=== PATIENT | female | born 1975 | race Caucasian/White ===

== ENCOUNTER 2019-04-14 00:34 | Day surgery (SDC) | payer OTHER ==
[2019-04-14] MEDS ORDERED: HYDCOR20 (08:48)
[2019-04-14] MEDS ORDERED: THYR60 PO (08:49)
[2019-04-14] MEDS ORDERED: MYCO250 PO (08:49)
== END 2019-04-14 09:00 | disposition home or self-care (01) ==
LOC: ATC 00:34
DX: E27.40 Unspecified adrenocortical insufficiency (principal); Z79.899 Other long term (current) drug therapy; Z79.51 Long term (current) use of inhaled steroids; E03.9 Hypothyroidism, unspecified
CPT/HCPCS: 80400; 82533; 96372; J0834